=== PATIENT | male | born 2000 | race Hispanic/Latino ===

== ENCOUNTER 2018-07-27 00:03 | Emergency (ER) | payer SELFPAY ==
[2018-07-27] MEDS ORDERED: ONDANSETRON 4 MG (ODT) TAB ONE (00:37)
--- NOTE | 2018-07-27 01:04 | ER ---
Nurse's Notes [facility] Name: Vishnu Rodgers Age: 17 yrs Sex: Male : 2000 Arrival Date: 07/27/2018 Time: 00:04 Bed 18 Private MD: Diagnosis: Noninfective gastroenteritis and colitis, unspecified Presentation: 07/27 00:20 Presenting complaint: Patient states: body aches, N/V/D since this morning. Transition ak1 of care: patient was not received from another setting of care. Onset of symptoms was July 26, 2018. Risk Assessment: Do you want to hurt yourself or someone else? Patient reports no desire to harm self or others. Initial Sepsis Screen: Does the patient meet any 2 criteria? No. Patient's initial sepsis screen is negative. Does the patient have a suspected source of infection? No. Patient's initial sepsis screen is negative. Care prior to arrival: None. 00:20 Method Of Arrival: Ambulatory ak1 00:20 Acuity: ERNA 4 ak1 Triage Assessment: 00:21 General: Appears in no apparent distress. Behavior is calm, cooperative. Pain: ak1 Complains of pain in all over body aches. EENT: Nares are clear Oral mucosa is moist. Throat is clear. Neuro: No deficits noted. Cardiovascular: No deficits noted. Respiratory: No deficits noted. GI: Abdomen is flat, Bowel sounds present X 4 quads. Abd is soft and non tender X 4 quads. Reports diarrhea, nausea, vomiting. : No signs and/or symptoms were reported regarding the genitourinary system. Derm: No signs and/or symptoms reported regarding the dermatologic system. Musculoskeletal: Reports all over body aches. Historical: - Allergies: 00:21 No Known Allergies; ak1 - Home Meds: 00:21 None [Active]; ak1 - PMHx: 00:21 cancer - unknown; ak1 - PSHx: 00:21 Unable to obtain; ak1 - Immunization history:: Adult Immunizations unknown. - Social history:: Smoking status: Patient/guardian denies using tobacco. - Ebola Screening: : No symptoms or risks identified at this time. Screenin:24 Abuse screen: Denies threats or abuse. Denies injuries from another. Nutritional ak1 screening: No deficits noted. Tuberculosis screening: No symptoms or risk factors identified. Fall Risk None identified. Assessment: 00:25 Reassessment: Patient appears in no apparent distress at this time. No changes from ak1 previously documented assessment. see triage assessment. 01:17 Reassessment: pt tolerated water, no vomiting noted or reported. ak1 Vital Signs: 00:21 BP 114 / 75; Pulse 84; Resp 18; Temp 99.4(O); Pulse Ox 99% on R/A; Weight 58.97 kg (R); ak1 Height 5 ft. 4 in. (162.56 cm) (R); Pain 7/10; 00:53 BP 104 / 69; Pulse 85; Resp 18; Pulse Ox 100% on R/A; ak1 00:21 Body Mass Index 22.31 (58.97 kg, 162.56 cm) ak1 ED Course: 00:04 Patient arrived in ED. am2 00:10 Eleonora Stuart FNP-C is PHCP. danilo 00:10 Pawan Small MD is Attending Physician. kb 00:19 Clara Mascorro RN is Primary Nurse. ak1 00:20 Triage completed. ak1 00:21 Arm band placed on Patient placed in an exam room, on a stretcher, on pulse oximetry, ak1 Patient notified of wait time. 00:24 Patient has correct armband on for positive identification. Bed in low position. Call ak1 light in reach. Side rails up X 1. Pulse ox on. NIBP on. 00:25 Flu and/or RSV swab sent to lab. Strep swab sent to lab. ak1 01:18 No provider procedures requiring assistance completed. Patient did not have IV access ak1 during this emergency room visit. Administered Medications: 00:29 Drug: Zofran 4 mg Route: PO; ak1 00:52 Follow up: Response: No adverse reaction ak1 Outcome: 01:04 Discharge ordered by . danilo 01:18 Discharged to home ambulatory. ak1 01:18 Condition: stable 01:18 Discharge instructions given to patient, Instructed on discharge instructions, follow up and referral plans. Demonstrated understanding of instructions, follow-up care, medications, Prescriptions given X 1. 01:24 Patient left the ED. ak1 Signatures: Eleonora Stuart FNP-C FNP-Clara Juarez, RN RN ak1 Ann Foley am2
--- NOTE | 2018-07-27 01:04 | EDPHYS ---
Physician Documentation [facility] Name: Vishnu Rodgers Age: 17 yrs Sex: Male : 2000 Arrival Date: 07/27/2018 Time: 00:04 Bed 18 Private MD: ED Physician Pawan Small HPI: 07/27 01:02 This 17 yrs old Male presents to ER via Ambulatory with complaints of Pain All kb Over. 01:02 The patient presents to the emergency department with nausea, vomiting, diarrhea. kb Onset: The symptoms/episode began/occurred this morning. Possible causes: sick contacts, by family. The symptoms are aggravated by nothing. The symptoms are alleviated by nothing. Associated signs and symptoms: Pertinent positives: diarrhea, nausea, vomiting, Pertinent negatives: abdominal pain, anorexia, belching, constipation, dysuria, fever, flatulence, GI bleeding, hematuria. Severity of symptoms: At their worst the symptoms were mild moderate in the emergency department the symptoms are unchanged. The patient has not experienced similar symptoms in the past, but family has similar symptoms, uncle and cousin have same symptoms. The patient has not recently seen a physician. Historical: - Allergies: 00:21 No Known Allergies; ak1 - Home Meds: 00:21 None [Active]; ak1 - PMHx: 00:21 cancer - unknown; ak1 - PSHx: 00:21 Unable to obtain; ak1 - Immunization history:: Adult Immunizations unknown. - Social history:: Smoking status: Patient/guardian denies using tobacco. - Ebola Screening: : No symptoms or risks identified at this time. ROS: 01:00 ENT: Negative for injury, pain, and discharge, Neck: Negative for injury, pain, and kb swelling, Cardiovascular: Negative for chest pain, palpitations, and edema, Respiratory: Negative for shortness of breath, cough, wheezing, and pleuritic chest pain, Back: Negative for injury and pain, : Negative for injury, bleeding, discharge, and swelling, MS/Extremity: Negative for injury and deformity, Skin: Negative for injury, rash, and discoloration, Neuro: Negative for headache, weakness, numbness, tingling, and seizure. 01:00 Constitutional: Positive for body aches, fever, Negative for chills, fatigue, malaise, poor PO intake, weight loss. 01:00 Abdomen/GI: Positive for nausea, vomiting, and diarrhea. Exam: 01:01 Constitutional: This is a well developed, well nourished patient who is awake, alert, kb and in no acute distress. Head/Face: Normocephalic, atraumatic. ENT: Nares patent. No nasal discharge, no septal abnormalities noted. Tympanic membranes are normal and external auditory canals are clear. Oropharynx with no redness, swelling, or masses, exudates, or evidence of obstruction, uvula midline. Mucous membranes moist. Neck: Trachea midline, no thyromegaly or masses palpated, and no cervical lymphadenopathy. Supple, full range of motion without nuchal rigidity, or vertebral point tenderness. No Meningismus. Chest/axilla: Normal chest wall appearance and motion. Nontender with no deformity. No lesions are appreciated. Cardiovascular: Regular rate and rhythm with a normal S1 and S2. No gallops, murmurs, or rubs. Normal PMI, no JVD. No pulse deficits. Respiratory: Lungs have equal breath sounds bilaterally, clear to auscultation and percussion. No rales, rhonchi or wheezes noted. No increased work of breathing, no retractions or nasal flaring. Abdomen/GI: Soft, non-tender, with normal bowel sounds. No distension or tympany. No guarding or rebound. No evidence of tenderness throughout. Skin: Warm, dry with normal turgor. Normal color with no rashes, no lesions, and no evidence of cellulitis. MS/ Extremity: Pulses equal, no cyanosis. Neurovascular intact. Full, normal range of motion. Neuro: Awake and alert, GCS 15, oriented to person, place, time, and situation. Cranial nerves II-XII grossly intact. Motor strength 5/5 in all extremities. Sensory grossly intact. Cerebellar exam normal. Normal gait. Vital Signs: 00:21 BP 114 / 75; Pulse 84; Resp 18; Temp 99.4(O); Pulse Ox 99% on R/A; Weight 58.97 kg (R); ak1 Height 5 ft. 4 in. (162.56 cm) (R); Pain 7/10; 00:53 BP 104 / 69; Pulse 85; Resp 18; Pulse Ox 100% on R/A; ak1 00:21 Body Mass Index 22.31 (58.97 kg, 162.56 cm) ak1 MDM: 00:13 Patient medically screened. kb 01:00 Data reviewed: vital signs, nurses notes. Data interpreted: Pulse oximetry: on room air kb is 100 %. Interpretation: normal. Counseling: I had a detailed discussion with the patient and/or guardian regarding: the historical points, exam findings, and any diagnostic results supporting the discharge/admit diagnosis, lab results, the need for outpatient follow up, a family practitioner, to return to the emergency department if symptoms worsen or persist or if there are any questions or concerns that arise at home. 07/27 00:22 Order name: Flu; Complete Time: 00:59 kb 07/27 00:22 Order name: Strep; Complete Time: 00:59 kb 07/27 00:54 Order name: Throat Culture EDNC 07/27 00:59 Order name: PO challenge; Complete Time: 01:17 kb Administered Medications: 00:29 Drug: Zofran 4 mg Route: PO; ak1 00:52 Follow up: Response: No adverse reaction ak1 Disposition: 07/27/18 01:04 Discharged to Home. Impression: Noninfective gastroenteritis and colitis, unspecified. - Condition is Stable. - Discharge Instructions: Food Choices to Help Relieve Diarrhea, Adult, Viral Gastroenteritis, Adult, [id number]. - Prescriptions for Zofran 4 mg Oral Tablet - take 1 tablet by ORAL route every 6 hours As needed; 20 tablet. - Medication Reconciliation Form, Thank You Letter, Antibiotic Education, Prescription Opioid Use, Work release form form. - Follow up: Emergency Department; When: As needed; Reason: Worsening of condition. Follow up: Private Physician; When: 2 - 3 days; Reason: Recheck today's complaints, Continuance of care, Re-evaluation by your physician. Addendum: 07/30/2018 06:54 Co-signature as Attending Physician, Pawan Small MD I agree with the assessment and c elizabeth plan of care. Signatures: Dispatcher [employer] Eleonora Polk, MATTY-Raghu STARR-Pawan Vickers MD MD cha Krenek, Amber, RN RN ak1 Corrections: (The following items were deleted from the chart) 07/27 01:24 01:04 07/27/2018 01:04 Discharged to Home. Impression: Noninfective gastroenteritis and ak1 colitis, unspecified. Condition is Stable. Forms are Medication Reconciliation Form, Thank You Letter, Antibiotic Education, Prescription Opioid Use. Follow up: Emergency Department; When: As needed; Reason: Worsening of condition. Follow up: Private Physician; When: 2 - 3 days; Reason: Recheck today's complaints, Continuance of care, Re-evaluation by your physician. kb
== END 2018-07-27 01:24 | disposition home or self-care (01) ==
LOC: ER 00:03
DX: K52.9 Noninfective gastroenteritis and colitis, unspecified (principal)
CPT/HCPCS: 87070; 87081; 87804; 99284